=== PATIENT | female | born 1930 | race Caucasian/White ===

== ENCOUNTER 2017-06-29 07:05 | Inpatient (IN) | payer MEDICAID, OTHER ==
[2017-06-29 07:10] VITALS: BMI 29.2
[2017-06-29 08:24] LABS: BASO # 0.1 K/uL (0.0-0.2); BASO % 0.6 % (0.0-2.0); EOS # 0.3 K/uL (0.0-0.7); EOS % 2.9 % (0.0-4.0); LYMPH # 2.9 K/uL (1.0-4.3); LYMPH % 31.2 % (20.0-40.0); MEAN CELL VOLUME 88.5 fL (81.0-99.0); MEAN CORPUSCULAR HEMOGLOBIN 29.5 pg (27.0-31.0); MEAN CORPUSCULAR HGB CONC 33.3 g/dL (33.0-37.0); MEAN PLATELET VOLUME 8.5 fL (7.2-11.7); MONO # 0.7 K/uL (0.0-0.8); MONO % 7.3 % (0.0-10.0); NRBC % 0.1 % (0.0-2.0); RED CELL DISTRIBUTION WIDTH 15.8 % (11.5-14.5); WHITE BLOOD COUNT 9.3 K/uL (4.8-10.8)
[2017-06-29 08:40] LABS: RBC URINE 1 /hpf (0-3); URINE BACTERIA RARE (<OCC); URINE BILIRUBIN NEGATIVE (NEGATIVE); URINE BLOOD NEGATIVE (NEGATIVE); URINE COLOR Yellow (YELLOW); URINE GLUCOSE (UA) NORMAL (Normal); URINE HYALINE CAST 0-2 /lpf (0-2); URINE KETONE NEGATIVE (NEGATIVE); URINE LEUKOCYTE ESTERASE 1+ Leu/uL (Negative); URINE PROTEIN NEGATIVE (NEGATIVE); URINE UROBILINOGEN NORMAL mg/dL (0.2-1.0); WBC URINE 8 /hpf (0-5)
--- NOTE | 2017-06-29 08:54 | C.PDOC ---
History Of Present Illness 86 y/o female sent to ED by PMD, Dr. Burroughs, for abnormal lab results. Pt states her TSH was found to be 165 in outpatient labs 2 days ago. Denies taking any thyroid medications. Denies any physical complaints at this time. Time Seen by Provider: 06/29/17 07:41 Chief Complaint (Nursing): Abnormal Labs History Per: Patient History/Exam Limitations: no limitations Severity: None Pain Scale Rating Of: 0 Reports Recently: Treated By A Physician Recent travel outside of the [place]: No Additional History Per: Patient Past Medical History Reviewed: Historical Data, Nursing Documentation, Vital Signs Vital Signs: Last Vital Signs Temp 97.4 F L 06/29/17 07:14 Pulse 61 06/29/17 08:56 Resp 14 06/29/17 08:56 BP 134/64 06/29/17 08:56 Pulse Ox 99 06/29/17 08:59 - Medical History PMH: HTN, Hypercholesterolemia - [facility] Procedures CORONAR ARTERIOGR-2 CATH (03/24/13) LEFT HEART CARDIAC CATH (03/24/13) LT HEART ANGIOCARDIOGRAM (03/24/13) Family History: States: Unknown Family Hx - Social History Hx Tobacco Use: No Hx Alcohol Use: No Hx Substance Use: No - Immunization History Hx Tetanus Toxoid Vaccination: No Hx Influenza Vaccination: No Hx Pneumococcal Vaccination: No Review Of Systems Except As Marked, All Systems Reviewed And Found Negative. Constitutional: Negative for: Fever, Chills Cardiovascular: Negative for: Chest Pain, Palpitations Respiratory: Negative for: Shortness of Breath Physical Exam - Physical Exam Appears: Non-toxic, No Acute Distress Skin: Normal Color, Warm, Dry Head: Atraumatic, Normacephalic Eye(s): bilateral: Normal Inspection Oral Mucosa: Moist Neck: Normal ROM, Supple Cardiovascular: Rhythm Regular, No Murmur Respiratory: Normal Breath Sounds, No Rales, No Rhonchi, No Wheezing Gastrointestinal/Abdominal: Soft, No Tenderness Extremity: Normal ROM Neurological/Psych: Oriented x3, Normal Speech ED Course And Treatment - Laboratory Results Result Diagrams: 06/29/17 08:11 06/29/17 08:11 Lab Interpretation: Abnormal (mild elev glu, T4 low, pending TSH) ECG: Interpreted By Me ECG Rhythm: Sinus Rhythm ECG Interpretation: Normal Rate From EC O2 Sat by Pulse Oximetry: 99 Pulse Ox Interpretation: Normal - Radiology CXR: Interpreted by Me CXR Interpretation: Yes: No Acute Disease Progress Note: synthroid 50 mcg PO given Reevaluation Time: 09:42 Reassessment Condition: Improved - Physician Consult Information Outcome Of Conversation: 929: d/w Dr. Parr- PMD- ok to start synthroid and Obs Medical Decision Making Medical Decision Making: EKG, CXR, blood work, UA ordered and reviewed. 929: hypothyroidism of ? etiology, asymptomatic and other faye normal w/u. Disposition Doctor Will See Patient In The: Hospital Counseled Patient/Family Regarding: Studies Performed, Diagnosis - Disposition Disposition: HOSPITALIZED Disposition Time: 09:43 Condition: GOOD Forms: [facility] ([place]) - Clinical Impression Clinical Impression: Hypothyroidism - Scribe Statement The provider has reviewed the documentation as recorded by the Oviibscotty Mahajan All medical record entries made by the Oviibe were at my direction and personally dictated by me. I have reviewed the chart and agree that the record accurately reflects my personal performance of the history, physical exam, medical decision making, and the department course for this patient. I have also personally directed, reviewed, and agree with the discharge instructions and disposition.
[2017-06-29 09:03] LABS: BILIRUBIN,TOTAL 0.8 mg/dL (0.2-1.3); CALCIUM 9.2 mg/dl (8.6-10.4); GFR AFRICAN-AMERICAN 37; GLUCOSE,RANDOM 191 mg/dL (65-105); TOTAL PROTEIN 9.6 g/dL (6.3-8.3)
[2017-06-29 09:18] LABS: ALB/GLOB RATIO 0.7 (1.0-2.1); ALKALINE PHOSPHATASE 67 U/L (38-126); ALT/SGPT 16 U/L (9-52); AST/SGOT 21 U/L (14-36); BLOOD UREA NITROGEN 30 mg/dL (7-17); CARBON DIOXIDE 25 mmol/L (22-30); CHLORIDE 105 mmol/L (98-107); POTASSIUM 5.6 mmol/L (3.6-5.2); SODIUM 138 mmol/L (132-148)
[2017-06-29 09:20] LABS: FREE T4 0.09 ng/dL (0.78-2.19)
[2017-06-29] MEDS ORDERED: Levothyroxine 50 MCG TAB PO STA (09:39)
[2017-06-29] MEDS ORDERED: Influenza Vaccine 60 mcg/0.5 mL SYR (4YR UP) IM ONE (10:00)
--- NOTE | 2017-06-29 10:18 | RAD ---
PROCEDURE: CHEST RADIOGRAPH, 1 VIEW HISTORY: Shortness of breath COMPARISON: None available. FINDINGS: LUNGS: There are low lung volumes. No focal consolidation. There is mild pulmonary venous congestion. PLEURA: No pneumothorax or pleural fluid seen. CARDIOVASCULAR: Mild cardiomegaly. OSSEOUS STRUCTURES: No significant abnormalities. VISUALIZED UPPER ABDOMEN: Normal. OTHER FINDINGS: None. IMPRESSION: Mild cardiomegaly and pulmonary venous congestion. Low lung volumes may be related to poor inspiratory effort. No active pulmonary disease.
[2017-06-29] MEDS ORDERED: Levothyroxine 25 MCG TAB PO STA (11:31)
[2017-06-29 17:14] VITALS: RESP 20
--- NOTE | 2017-06-29 17:55 | CARD ---
APPROVED REPORT EXAM: Two-dimensional and M-mode echocardiogram with Doppler and color Doppler. Other Information Quality : [employer] : INDICATION Pericardial Effusion 2D DIMENSIONS IVSd1.1 (0.7-1.1cm)LVDd4.7 (3.9-5.9cm) PWd1.0 (0.7-1.1cm)LVDs2.7 (2.5-4.0cm) FS (%) 42.6 %LVEF (%)73.7 (>50%) M-Mode DIMENSIONS Left Atrium (MM)4.02 (2.5-4.0cm)Aortic Root3.60 (2.2-3.7cm) Aortic Cusp Exc.1.83 (1.5-2.0cm) Mitral Valve MV E Qllifyow61.8cm/sMV A Bkpfjqtk89.8cm/sE/A ratio0.9 TDI E/Lateral E'0.0E/Medial E'0.0 Tricuspid Valve TR Peak Oltuswol235rx/sTR Peak Gr.[id number] LEFT VENTRICLE The left ventricle is normal size. There is borderline concentric left ventricular hypertrophy. The left ventricular systolic function is normal. The left ventricular ejection fraction is within the normal range. There is normal LV segmental wall motion. Elevated left atrial pressure by Tissue Doppler. Transmitral Doppler flow pattern is Grade I-abnormal relaxation pattern. RIGHT VENTRICLE The right ventricle is normal size. The right ventricular systolic function is normal. ATRIA The left atrium is borderline to mildly dilated. The right atrium size is normal. AORTIC VALVE The aortic valve is normal in structure. No aortic regurgitation is present. MITRAL VALVE The mitral valve is normal in structure. There is no mitral valve regurgitation noted. TRICUSPID VALVE The tricuspid valve is normal in structure. There is trace tricuspid regurgitation. PULMONIC VALVE The pulmonary valve is normal in structure. GREAT VESSELS The aortic root is normal in size. The IVC is normal in size and collapses >50% with inspiration. PERICARDIAL EFFUSION There is no pericardial effusion. <Conclusion> There is borderline concentric left ventricular hypertrophy.The left ventricular systolic function is normal. Transmitral Doppler flow pattern is Grade I-abnormal relaxation pattern. Elevated left atrial pressure by Tissue Doppler. The left atrium is borderline to mildly dilated. The right ventricular systolic function is normal. No gross valvular abnormality. There is no pericardial effusion. Pericardial fat pad noted.
--- NOTE | 2017-06-29 19:52 | CP.PCM.HP ---
History of Present Illness - History of Present Illness History of Present Illness: chief complaint: Abnormal TSH. History presentOf present illness: 86-year-old female, with history of diabetes, hypertension, congestive heart failure, chronic renal failure, history of intermittent atrial fib, in the past , nonobstructive coronary disease, Came to the office with a increasing swelling on the neck, facial swelling, and not feeling well. At that time. Basic blood test was done, and there was increasing elevated TSH level. TSH level was around 200. I immediately advised the patient to go to the emergency room. Because of the complications related to heart condition, hypothyroidism is so severe, you and the clinically patient is okay I advised the patient to go to the emergency room for further management. The patient is currently feeling okay, no chest pain, neck swelling noted and facial swelling present. Patient is eating okay. Patient is making urine. No leg swelling noted. Present on Admission - Present on Admission Any Indicators Present on Admission: No History of DVT/PE: No History of Uncontrolled Diabetes: No Urinary Catheter: No Decubitus Ulcer Present: No Review of Systems - Review of Systems Systems not reviewed;Unavailable: Acuity of Condition All systems: reviewed and no additional remarkable complaints except Past Patient History - Infectious Disease Hx of Infectious Diseases: None - Past Medical History & Family History Past Medical History?: Yes Past Family History: Reviewed and not pertinent - Past Social History Smoking Status: Never Smoked Chewing Tobacco Use: No Cigar Use: No Alcohol: None Drugs: Denies Home Situation {Lives}: With Family - CARDIAC Hx Cardiac Disorders: Yes (history of atrial fibrillation, heart failure, non- ST elevation VT) Hx Heart Attack: Yes (February 2017) Hx Hypercholesterolemia: Yes Hx Hypertension: Yes - NEUROLOGICAL Hx Dementia: Yes (mild dementia) - HEENT Hx Deafness: Yes - RENAL Hx Chronic Kidney Disease: Yes (chronic renal failure) - ENDOCRINE/METABOLIC Hx Diabetes Mellitus Type 2: Yes (controlled with the metformin) - MUSCULOSKELETAL/RHEUMATOLOGICAL Hx Arthritis: Yes Hx Falls: No - PSYCHIATRIC Hx Substance Use: No - SURGICAL HISTORY Hx Surgeries: Yes Other/Comment: right hand sx - ANESTHESIA Hx Anesthesia: Yes Hx Anesthesia Reactions: No Meds Allergies/Adverse Reactions: Allergies Allergy/AdvReac Type Severity Reaction Status Date / Time No Known Allergies Allergy Verified 06/29/17 07:17 Physical Exam - Constitutional Additional comments: facial swelling noted, minimal leg swelling noted. On examination: HEENT PERRLA, neck supple No thyromegaly was noted and no cervical adenopathy noted Chest bilateral good air entry, no wheezing or rales noted CVS regular heart sound, no murmur Abdomen soft and no organomegaly Extremities no pedal edema, no leg swelling, pedal pulses are good. [employer] alert awake oriented x3 no functional neurological deficit Results - Vital Signs Recent Vital Signs: Last Vital Signs Temp 97.2 F L 06/29/17 16:00 Pulse 65 06/29/17 16:00 Resp 20 06/29/17 16:00 BP 126/74 06/29/17 16:00 Pulse Ox 98 06/29/17 16:00 - Labs Result Diagrams: 06/29/17 08:11 06/29/17 08:11 Labs: Laboratory Results - last 24 hr 06/29/17 06/29/17 06/29/17 08:11 08:11 08:11 WBC 9.3 D RBC 3.73 L Hgb 11.0 Hct 33.0 L MCV 88.5 MCH 29.5 MCHC 33.3 RDW 15.8 H Plt Count 252 MPV 8.5 Neut % (Auto) 58.0 Lymph % (Auto) 31.2 [place] % (Auto) 7.3 Eos % (Auto) 2.9 Baso % (Auto) 0.6 Neut # 5.4 Lymph # 2.9 [place] # 0.7 Eos # 0.3 Baso # 0.1 Sodium 138 Potassium 5.6 H Chloride 105 Carbon Dioxide 25 Anion Gap 14 BUN 30 H Creatinine 1.6 H Est GFR ( Amer) 37 Est GFR (Non-Af Amer) 31 POC Glucose (mg/dL) Random Glucose 191 H Calcium 9.2 Total Bilirubin 0.8 AST 21 ALT 16 Alkaline Phosphatase 67 Troponin I < 0.0120 Total Protein 9.6 H Albumin 4.1 Globulin 5.5 H Albumin/Globulin Ratio 0.7 L Free T4 TSH 3rd Generation Urine Color Yellow Urine Clarity Hazy Urine pH 7.0 Ur Specific [employer] 1.012 Urine Protein Negative Urine Glucose (UA) Normal Urine Ketones Negative Urine Blood Negative Urine Nitrate Negative Urine Bilirubin Negative Urine Urobilinogen Normal Ur Leukocyte Esterase 1+ H Urine WBC (Auto) 8 H Urine RBC (Auto) 1 Ur Squamous Epith Cells 2 Urine Bacteria Rare Hyaline Casts 0-2 06/29/17 06/29/17 08:11 16:31 WBC RBC Hgb Hct MCV MCH MCHC RDW Plt Count MPV Neut % (Auto) Lymph % (Auto) [place] % (Auto) Eos % (Auto) Baso % (Auto) Neut # Lymph # [place] # Eos # Baso # Sodium Potassium Chloride Carbon Dioxide Anion Gap BUN Creatinine Est GFR ( Amer) Est GFR (Non-Af Amer) POC Glucose (mg/dL) 137 H Random Glucose Calcium Total Bilirubin AST ALT Alkaline Phosphatase Troponin I Total Protein Albumin Globulin Albumin/Globulin Ratio Free T4 0.09 L TSH 3rd Generation 210.00 H Urine Color Urine Clarity Urine pH Ur Specific [employer] Urine Protein Urine Glucose (UA) Urine Ketones Urine Blood Urine Nitrate Urine Bilirubin Urine Urobilinogen Ur Leukocyte Esterase Urine WBC (Auto) Urine RBC (Auto) Ur Squamous Epith Cells Urine Bacteria Hyaline Casts - EKG Data EKG comments: sinus bradycardia, first degree AV block Assessment & Plan (1) CHF (congestive heart failure) Status: Acute (2) Atrial fibrillation Status: Acute (3) CAD (coronary artery disease) Status: Acute (4) Hypothyroidism Assessment and Plan: patient with the severe cardiac condition, now admitted with a 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 Severe hypothyroidism. In the current evaluation. To start the patient levothyroxine slowly, as the patient tolerates. Mild renal insufficiency. Patient will need close monitoring. Will follow the patient. Educated with the family about the condition. Status: Acute
[2017-06-30] MEDS ORDERED: Levothyroxine 100 MCG TAB PO SCH (06:30)
[2017-06-30 08:08] LABS: ALB/GLOB RATIO 1.1 (1.0-2.1); ALKALINE PHOSPHATASE 70 U/L (38-126); ALT/SGPT 23 U/L (9-52); AST/SGOT 14 U/L (14-36); BILIRUBIN,TOTAL 0.5 mg/dL (0.2-1.3); BLOOD UREA NITROGEN 27 mg/dL (7-17); CALCIUM 9.1 mg/dl (8.6-10.4); CARBON DIOXIDE 26 mmol/L (22-30); CHLORIDE 106 mmol/L (98-107); GFR AFRICAN-AMERICAN 37; GLUCOSE,RANDOM 135 mg/dL (65-105); POTASSIUM 5.3 mmol/L (3.6-5.2); SODIUM 141 mmol/L (132-148); TOTAL PROTEIN 7.2 g/dL (6.3-8.3)
[2017-06-30 08:37] LABS: T4 2.14 ug/dL (5.5-11.0)
--- NOTE | 2017-06-30 09:43 | CON ---
DATE: ENDOCRINOLOGY CONSULT ROOM: 370. HISTORY OF PRESENT ILLNESS: This is an 86-year-old female with known history of type 2 diabetes and hypertension, presenting to the primary doctor's office with generalized swelling, most prominent in her facial and neck area and associated generalized body weakness with progressively worsening dizziness and lightheadedness and was found to have a TSH level of 165 done with outpatient lab testing. She was thus referred for immediate admission because of bradycardia and progressively worsening dizziness and lightheadedness and has been referred now for endocrine evaluation and management. PAST MEDICAL HISTORY: History of type 2 diabetes, currently on metformin, given as 500 mg b.i.d.; history of hypertension and dyslipidemia; history of previous admissions for congestive heart failure and intermittent atrial fibrillation, but has been hemodynamically stable through the present time; history of coronary artery disease with no significant occlusive disease at this time; history of chronic kidney disease with underlying renal insufficiency. FAMILY HISTORY: Positive for diabetes and hypertension. SOCIAL HISTORY: The patient has a supportive family. No known substance use. REVIEW OF SYSTEMS: As mentioned above. Admits to generalized body weakness with progressive bouts of dizziness and lightheadedness, and near syncopal episode as noted. Also admits to bifrontal headache with increasing bouts of hypersomnolence, lethargy and generalized malaise at this time. Admits to the precordial chest pain with progressive shortness of breath, especially on exertion. Her oral intake has been quite variable and suboptimal with nausea, dyspepsia and severe habitual constipation. No recent alterations of urinary patterns otherwise. Admits to generalized body swelling in both upper and lower extremities, but worse and more prominent in her facial and neck area. PHYSICAL EXAMINATION: GENERAL: Average built female in no apparent distress with marked periorbital and facial edema. VITAL SIGNS: Blood pressure of 140/80, pulse of 60 beats per minute and regular, temperature 98.7, respirations 20, height is 4 feet 11 inches, weight is 104 pounds. HEENT: Head is normocephalic. Eyes anicteric with pink conjunctivae. Funduscopy not possible at this time. Ears, nose and throat otherwise normal. NECK: Supple. Thyroid gland is firm and nontender with mild thyromegaly, but no overt possible thyroid nodules or cervical adenopathy. HEART: Adynamic precordium. S1 and S2 is low and regular. LUNGS: Clear to auscultation. ABDOMEN: Flat and soft with positive bowel sounds. EXTREMITIES: With +1 bipedal edema, pulses are +2 bilaterally. LABORATORY DATA: Chemistries showed BUN of 30, sodium 138, potassium 5.6, chloride 105, CO2 of 25, glucose 191, creatinine 1.6. Free T4 is 0.09 with the TSH of 210.00, albumin is 4.1. 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 PLAN OF MANAGEMENT: We will start the patient right away on levothyroxine replacement therapy, give her parenterally up to 100 mcg intravenous push daily for the next three days. Giving her oral levothyroxine will be inadequate management because of the marked mucosal edema in the stomach area, which shows an impaired absorption on the levothyroxine preparation. It would be beneficial to give the levothyroxine by intravenous push for the next few days to enhance full absorption of the levothyroxine medication as mentioned. We will obtain a thyroid peroxidase and a thyroglobulin antibody, which will confirm and/or negate the presence of underlying thyroid autoimmunity. We will obtain serial chemistries and supplement accordingly as needed. We will also repeat the comprehensive thyroid hormonal profile tomorrow as ordered. We will follow. Itzel De Leon MD
[2017-06-30] MEDS ORDERED: Levothyroxine 200 mcg (0.2 mg) Inj IVP SCH (10:00)
[2017-06-30] MEDS: Levothyroxine 100 mcg (0.1 mg) Inj IVP SCH (11:12)
--- NOTE | 2017-06-30 13:44 | PN ---
DATE: ENDOCRINOLOGY FOLLOWUP NOTE LOCATION: Room 370. SUBJECTIVE: This is an 86-year-old female admitted with marked facial and periorbital and subcutaneous swelling and edema related to marked hypothyroidism both historically, clinically and biochemically as noted. The family has told the nursing staff that she was actually taking some kind of thyroid medication, but it was not mentioned on admission by the primary physician, nor the ER physician that she was on some kind of oral thyroid medication at this time. She has clinical evidence of new myxedema at this time and the latest repeat thyroid studies done today showed a T4 of 2.14 with a TSH of 171.00, which is extremely elevated at this time. The cortisol level is 8.0. The chemistry showed a BUN of 27, sodium 141, potassium 5.3, chloride 106, CO2 of 26, glucose 135 and creatinine 1.6. PLAN: So at this time, because of the extreme generalized edema and also expected marked mucosal edema in the gastric mucosa of the stomach, impeding and impairing absorption of any oral levothyroxine medications, it has been decided that we should continue the parenteral levothyroxine given as 100 mcg IV push once daily as ordered for at least 3 days, has to be given. Then we can switch over to oral hypoglycemic therapy as indicated. We will obtain serial chemistries and serial thyroid studies accordingly. The thyroid antibodies have been sent out, which will confirm and/or negate the presence of underlying thyroid autoimmunity. We will follow. Itzel De Leon MD
--- NOTE | 2017-06-30 17:41 | CP.PCM.PN ---
Subjective - Date & Time of Evaluation Date of Evaluation: 06/30/17 Time of Evaluation: 17:40 - Subjective Subjective: pt is feeling ok no chest pain no palpitation family at bed side spoke to family having BM Objective - Vital Signs/Intake and Output Vital Signs (last 24 hours): Temp Pulse Resp BP Pulse Ox 97.8 F 61 20 110/66 99 06/30/17 16:16 06/30/17 16:16 06/30/17 16:16 06/30/17 16:16 06/30/17 16:16 clinically stable Intake and Output: 06/30/17 06/30/17 06:59 18:59 Intake Total 320 Balance 320 - Medications Medications: Current Medications Aspirin (Ecotrin) 81 mg PO DAILY [facility] Last Admin: 06/30/17 10:39 Dose: 81 mg Atenolol (Tenormin) 50 mg PO DAILY [facility] Last Admin: 06/30/17 10:39 Dose: 50 mg Glipizide (Glucotrol) 5 mg PO ACBD [facility] Last Admin: 06/30/17 16:59 Dose: 5 mg Heparin Sodium (Porcine) (Heparin) 5,000 units SC Q8 [facility] Last Admin: 06/30/17 14:06 Dose: 5,000 units Levothyroxine Sodium (Synthroid) 100 mcg IVP DAILY [facility] Stop: 07/03/17 10:01 Last Admin: 06/30/17 11:12 Dose: 100 mcg Pneumococcal Polyvalent Vaccine (Pneumovax 23 Vaccine) 0.5 ml IM .ONCE ONE Stop: 07/01/17 10:01 Rosuvastatin Calcium (Crestor) 5 mg PO HS [facility] Last Admin: 06/29/17 21:20 Dose: 5 mg - Labs Labs: 06/29/17 08:11 06/30/17 07:35 Assessment and Plan (1) CHF (congestive heart failure) Status: Acute (2) Atrial fibrillation Status: Acute (3) CAD (coronary artery disease) Status: Acute (4) Hypothyroidism Assessment & Plan: severe hypothyroidsm myxedema symptoms on IV thyroid treatment will monitor one more day Status: Acute
[2017-07-01 08:38] LABS: ALB/GLOB RATIO 1.1 (1.0-2.1); BILIRUBIN,TOTAL 0.5 mg/dL (0.2-1.3); CALCIUM 8.7 mg/dl (8.6-10.4); POTASSIUM 5.1 mmol/L (3.6-5.2); TOTAL PROTEIN 7.5 g/dL (6.3-8.3)
[2017-07-01 08:39] LABS: BASO % 0.6 % (0.0-2.0); EOS # 0.2 K/uL (0.0-0.7); EOS % 3.2 % (0.0-4.0); HEMATOCRIT 28.9 % (34.0-47.0); LYMPH # 2.7 K/uL (1.0-4.3); LYMPH % 36.6 % (20.0-40.0); MEAN CELL VOLUME 87.3 fL (81.0-99.0); MEAN CORPUSCULAR HGB CONC 33.2 g/dL (33.0-37.0); MEAN PLATELET VOLUME 8.1 fL (7.2-11.7); MONO # 0.6 K/uL (0.0-0.8); RED CELL DISTRIBUTION WIDTH 15.8 % (11.5-14.5); WHITE BLOOD COUNT 7.2 K/uL (4.8-10.8)
[2017-07-01 08:50] LABS: T4 3.29 ug/dL (5.5-11.0)
[2017-07-01] MEDS ORDERED: Pneumococcal 23-Valent Vaccine IM ONE (10:00)
[2017-07-01] MEDS ORDERED: Influenza Vaccine 60 mcg/0.5 mL SYR (4YR UP) IM ONE (10:00)
[2017-07-01] MEDS: Levothyroxine 100 mcg (0.1 mg) Inj IVP SCH (10:53)
[2017-07-01] MEDS: Lidocaine 5% Patch TD SCH (17:14)
--- NOTE | 2017-07-02 07:24 | PN ---
DATE: ENDOCRINOLOGY FOLLOWUP NOTE LOCATION: Room 370. SUBJECTIVE: This is an 86-year-old female with marked constitutional symptoms of generalized body weakness and progressive shortness of breath with supervening facial and periorbital edema and underlying generalized body edema and was evaluated to have near mixed edema related to marked hypothyroidism both historically, clinically and by chemically as noted thereof. The family has alleged that the patient was on some kind of thyroid medication, but the list of her medications from home did not show any kind of thyroid medications, nor was the information given to the primary physician or the ER doctor at the time of admission. She has been started on IV or parenteral levothyroxine at this time as given. The latest thyroid studies showed a total T4 today of 3.29, which is improving compared to the initial level of 2.14, the latest TSH is still pending today and has yet to be completed, but yesterday's TSH was 171, which is much lower than the initial TSH on admission of 210.00. It will take 4 to 6 weeks for the normalization of the TSH values. I would expect a more rapid improvement with a total T4 and free T4 levels accordingly. Her latest chemistries showed a BUN of 27, sodium 141, potassium 5.3, chloride 106, CO2 of 26, glucose 135 and creatinine 1.6. With the underlying chronic kidney disease and renal insufficiency, I would hold off any metformin syrup at this time. We will continue the glipizide given as 5 mg b.i.d. before meals as ordered. We will also continue the levothyroxine given as a 100 mcg IV push daily as ordered. If the repeat levels done today and/or tomorrow are remarkably improved, then we can switch her over to oral levothyroxine medications as indicated. The main reason why we are giving parenteral or IV levothyroxine is because of the expected marked gastric mucosal edema hindering full obstruction of the oral levothyroxine if given at this time. To expect remarkable recovery both clinically and historically and even by chemically, it would be preferable to give levothyroxine by IV push once daily as ordered. After by chemical indices improved overnight and by tomorrow, then we can switch her over to oral levothyroxine medications as indicated. We will follow and advise accordingly. Itzel De Leon MD
[2017-07-02 08:15] LABS: BASO # 0.1 K/uL (0.0-0.2); BASO % 0.8 % (0.0-2.0); EOS # 0.2 K/uL (0.0-0.7); HEMATOCRIT 28.3 % (34.0-47.0); LYMPH # 2.1 K/uL (1.0-4.3); MEAN CELL VOLUME 87.4 fL (81.0-99.0); MEAN CORPUSCULAR HEMOGLOBIN 29.1 pg (27.0-31.0); MEAN CORPUSCULAR HGB CONC 33.3 g/dL (33.0-37.0); MEAN PLATELET VOLUME 8.5 fL (7.2-11.7); MONO # 0.5 K/uL (0.0-0.8); MONO % 8.3 % (0.0-10.0); RED CELL DISTRIBUTION WIDTH 16.1 % (11.5-14.5); WHITE BLOOD COUNT 6.2 K/uL (4.8-10.8)
[2017-07-02 08:46] LABS: ALB/GLOB RATIO 1.1 (1.0-2.1); BILIRUBIN,TOTAL 0.4 mg/dL (0.2-1.3); CALCIUM 8.8 mg/dl (8.6-10.4); POTASSIUM 4.9 mmol/L (3.6-5.2); TOTAL PROTEIN 7.3 g/dL (6.3-8.3)
[2017-07-02 09:06] LABS: T4 3.95 ug/dL (5.5-11.0)
[2017-07-02] MEDS: Lidocaine 5% Patch TD SCH (09:36)
[2017-07-02] MEDS: Levothyroxine 100 mcg (0.1 mg) Inj IVP SCH (09:37)
--- NOTE | 2017-07-02 19:01 | PN ---
ENDOCRINOLOGY FOLLOWUP NOTE LOCATION: Room 370. SUBJECTIVE: This is an 86-year-old female with overt hypothyroidism, both historically clinically and biochemically, and is now being followed closely for metabolic management. She has improved clinically and physically as noted by the family members and biochemically also has improved remarkably as noted with today's lab testing. The repeat TSH is 141.00 with a total T4 of 3.95. As mentioned in the previous note, the TSH is the last number to normalize and it takes 4 to 6 weeks for normalization of the TSH level, but her total T4 has improved remarkably since admission. We will give her one more IV parenteral levothyroxine tomorrow morning and then would recommend an oral dosing of 125 p.o. once daily as ordered. She will follow with Dr. Burroughs, her primary physician, for outpatient diabetic and thyroid management. Itzel De Leon MD
--- NOTE | 2017-07-03 00:49 | CARD ---
APPROVED REPORT EKG Measurement Heart [id number] CT 224P [id number] <Conclusion> Suspect arm lead reversal, interpretation assumes no reversal Sinus bradycardia with 1st degree AV block Lateral infarct, age undetermined Abnormal ECG
--- NOTE | 2017-07-03 00:50 | CARD ---
APPROVED REPORT EKG Measurement Heart [id number] [place] P55 [id number] <Conclusion> Sinus rhythm at the rate of 58 Baseline artifact, please repeat Abnormal ECG
[2017-07-03] MEDS ORDERED: Levothyroxine 100 mcg (0.1 mg) Inj IVP SCH (06:30)
[2017-07-03] MEDS ORDERED: LEVOTHYROXINE IVP SCH (06:30)
[2017-07-03] MEDS ORDERED: SODIUM CHLORIDE 0.9% IVP SCH (06:30)
[2017-07-03] MEDS ORDERED: Levothyroxine 125 MCG TAB PO SCH (07:30)
[2017-07-03 07:48] LABS: BILIRUBIN,TOTAL 0.4 mg/dL (0.2-1.3); CALCIUM 8.7 mg/dl (8.6-10.4); POTASSIUM 4.9 mmol/L (3.6-5.2); TOTAL PROTEIN 8.6 g/dL (6.3-8.3)
[2017-07-03 08:03] LABS: T4 7.82 ug/dL (5.5-11.0)
[2017-07-03 08:06] VITALS: BP 115/68; PULSE 94; O2SAT 97
[2017-07-03 08:15] LABS: ALB/GLOB RATIO 0.8 (1.0-2.1)
[2017-07-03] MEDS: Lidocaine 5% Patch TD SCH (10:04)
--- NOTE | 2017-07-03 16:18 | CP.PCM.PN ---
Subjective - Date & Time of Evaluation Date of Evaluation: 07/03/17 Time of Evaluation: 16:18 - Subjective Subjective: PT SEEN WITH FAMILY AT BEDSIDE. WAITING TO GO HOME. PT IS VERY EAGER TO BE D/ C HOME TONIGHT. DR. SILVEIRA'S NOTE FROM YESTERDAY REVIEWED AND RECS APPRECIATED. SEVERAL CALLS MADE TO DR. MUNSON'S OFFICE FOR D/C ORDER BUT PLACED ON HOLD FOR OVER 10 MINUTES. MESSAGE LEFT FOR DR. MUNSON ON PHONE THAT I WILL BE D/ C THE PT TODAY FOR HIM AND SHE WILL SEE HIM IN THE OFFICE NEXT WEEK. RX FOR LEVOTHYROXINE SENT TO PT'S PHARMACY AND THEY HAVE BEEN INSTRUCTED TO [facility] NEEDS SALESPERSON MED TONIGHT. PT EDUCATED ON HOW TO TAKE THE NEW MEDS. PT TO CALL DR. SILVEIRA;'S OFFICE TOMORROW TO MAKE A F/U APPT FOR NEXT WEEK. PT AND FAMILY VERBALIZE UNDERSTANDING OF D/C PLAN AND MEDS AND F/U. NO FURTHER ORDERS. Objective - Vital Signs/Intake and Output Vital Signs (last 24 hours): Temp Pulse Resp BP Pulse Ox 97.3 F L 94 H 20 115/68 97 07/03/17 08:03 07/03/17 08:03 07/03/17 08:03 07/03/17 08:03 07/03/17 08:03 Intake and Output: 07/03/17 07/03/17 06:59 18:59 Intake Total 420 350 Output Total 300 Balance 120 350 - Medications Medications: Current Medications Aspirin (Ecotrin) 81 mg PO DAILY [facility] Last Admin: 07/03/17 10:05 Dose: 81 mg Atenolol (Tenormin) 50 mg PO DAILY [facility] Last Admin: 07/03/17 10:05 Dose: 50 mg Glipizide (Glucotrol) 5 mg PO ACBD [facility] Last Admin: 07/03/17 08:04 Dose: 5 mg Heparin Sodium (Porcine) (Heparin) 5,000 units SC Q8 [facility] Last Admin: 07/03/17 13:52 Dose: 5,000 units Levothyroxine Sodium 100 mcg/ (Sodium Chloride) 10 mls @ 0 mls/hr IVP Q24H [facility] PRN Reason: UD Last Admin: 07/03/17 05:40 Dose: 100 mls/hr Levothyroxine Sodium (Synthroid) 125 mcg PO ACB [facility] Last Admin: 07/03/17 06:30 Dose: 125 mcg Lidocaine (Lidoderm) 1 ea TD DAILY [facility] Last Admin: 07/03/17 10:04 Dose: 1 ea Rosuvastatin Calcium (Crestor) 5 mg PO HS [facility] Last Admin: 07/02/17 22:40 Dose: 5 mg - Labs Labs: 07/02/17 08:05 07/03/17 07:23
--- NOTE | 2017-07-03 16:25 | PN ---
DATE: ENDOCRINOLOGY FOLLOWUP NOTE LOCATION: Room 370. SUBJECTIVE: This is an 86-year-old female with recent evaluation for marked hypothyroidism both historically, clinically and by chemically and since then improved both clinically and metabolically as noted thereof. She received IV levothyroxine up until today for which the last dose of 100 mcg IV push was given early this morning. Her repeat thyroid studies showed a level of 126.00 for the TSH and `.82 for the total T4, which is finally normalized at this time. It will take 4 to 6 weeks for the normalization of the TSH level as expected. We will continue the oral levothyroxine given as 125 mcg p.o. for restless disorder. We will titrate incrementally as indicated to optimize metabolic control. We will follow up with you. Itzel De Leon MD
[2017-07-03 17:13] VITALS: TEMP 97.9
[2017-07-03] MEDS ORDERED: Influenza Vaccine 60 mcg/0.5 mL SYR (4YR UP) IM ONE ×2 (17:20→17:45)
[2017-07-03] MEDS ORDERED: Pneumococcal 23-Valent Vaccine IM ONE ×2 (17:35→17:45)
--- NOTE | 2017-07-03 17:35 | CP.PCM.PN ---
Subjective - Date & Time of Evaluation Date of Evaluation: 07/01/17 Time of Evaluation: 17:35 - Subjective Subjective: Patient is currently feeling better, no chest pain or shortness of breath. Denies any other major active symptoms. She's feeling good appetite, and able to walk Objective - Vital Signs/Intake and Output Vital Signs (last 24 hours): Temp Pulse Resp BP Pulse Ox 97.9 F 94 H 20 115/68 97 07/03/17 16:00 07/03/17 16:26 07/03/17 16:00 07/03/17 16:26 07/03/17 16:26 Intake and Output: 07/03/17 07/03/17 06:59 18:59 Intake Total 420 350 Output Total 300 Balance 120 350 On examination: HEENT PERRLA, neck supple No thyromegaly was noted and no cervical adenopathy noted Chest bilateral good air entry, no wheezing or rales noted CVS regular heart sound, no murmur Abdomen soft and no organomegaly Extremities no pedal edema, no leg swelling, pedal pulses are good. 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 no functional neurological deficit - Medications Medications: Current Medications Aspirin (Ecotrin) 81 mg PO DAILY [facility] Last Admin: 07/03/17 10:05 Dose: 81 mg Atenolol (Tenormin) 50 mg PO DAILY [facility] Last Admin: 07/03/17 10:05 Dose: 50 mg Glipizide (Glucotrol) 5 mg PO ACBD [facility] Last Admin: 07/03/17 08:04 Dose: 5 mg Heparin Sodium (Porcine) (Heparin) 5,000 units SC Q8 [facility] Last Admin: 07/03/17 13:52 Dose: 5,000 units Levothyroxine Sodium 100 mcg/ (Sodium Chloride) 10 mls @ 0 mls/hr IVP Q24H [facility] PRN Reason: UD Last Admin: 07/03/17 05:40 Dose: 100 mls/hr Levothyroxine Sodium (Synthroid) 125 mcg PO ACB [facility] Last Admin: 07/03/17 06:30 Dose: 125 mcg Lidocaine (Lidoderm) 1 ea TD DAILY [facility] Last Admin: 07/03/17 10:04 Dose: 1 ea Rosuvastatin Calcium (Crestor) 5 mg PO HS [facility] Last Admin: 07/02/17 22:40 Dose: 5 mg - Labs Labs: 07/02/17 08:05 07/03/17 07:23 Assessment and Plan (1) CHF (congestive heart failure) Status: Acute (2) Atrial fibrillation Status: Acute (3) CAD (coronary artery disease) Status: Acute (4) Hypothyroidism Assessment & Plan: Patient with the severe hypothyroidism. Currently receiving intravenous thyroid supplementation. Will continue to monitor, and a endocrine followup Status: Acute
--- NOTE | 2017-07-03 17:36 | CP.PCM.PN ---
Subjective - Date & Time of Evaluation Date of Evaluation: 07/02/17 Time of Evaluation: 17:36 - Subjective Subjective: no new symptoms. Eating better. Appetite is good. Objective - Vital Signs/Intake and Output Vital Signs (last 24 hours): Temp Pulse Resp BP Pulse Ox 97.9 F 94 H 20 115/68 97 07/03/17 16:00 07/03/17 16:26 07/03/17 16:00 07/03/17 16:26 07/03/17 16:26 Intake and Output: 07/03/17 07/03/17 06:59 18:59 Intake Total 420 350 Output Total 300 Balance 120 350 On examination: HEENT PERRLA, neck supple No thyromegaly was noted and no cervical adenopathy noted Chest bilateral good air entry, no wheezing or rales noted CVS regular heart sound, no murmur Abdomen soft and no organomegaly Extremities no pedal edema, no leg swelling, pedal pulses are good. 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 no functional neurological deficit - Medications Medications: Current Medications Aspirin (Ecotrin) 81 mg PO DAILY [facility] Last Admin: 07/03/17 10:05 Dose: 81 mg Atenolol (Tenormin) 50 mg PO DAILY [facility] Last Admin: 07/03/17 10:05 Dose: 50 mg Glipizide (Glucotrol) 5 mg PO ACBD [facility] Last Admin: 07/03/17 08:04 Dose: 5 mg Heparin Sodium (Porcine) (Heparin) 5,000 units SC Q8 [facility] Last Admin: 07/03/17 13:52 Dose: 5,000 units Levothyroxine Sodium 100 mcg/ (Sodium Chloride) 10 mls @ 0 mls/hr IVP Q24H [facility] PRN Reason: UD Last Admin: 07/03/17 05:40 Dose: 100 mls/hr Levothyroxine Sodium (Synthroid) 125 mcg PO ACB [facility] Last Admin: 07/03/17 06:30 Dose: 125 mcg Lidocaine (Lidoderm) 1 ea TD DAILY [facility] Last Admin: 07/03/17 10:04 Dose: 1 ea Rosuvastatin Calcium (Crestor) 5 mg PO HS [facility] Last Admin: 07/02/17 22:40 Dose: 5 mg - Labs Labs: 07/02/17 08:05 07/03/17 07:23 Assessment and Plan (1) CHF (congestive heart failure) Status: Acute (2) Atrial fibrillation Status: Acute (3) CAD (coronary artery disease) Status: Acute (4) Hypothyroidism Assessment & Plan: severe hypothyroidism on medication Status: Acute
--- NOTE | 2017-07-03 17:36 | CP.PCM.DIS ---
Provider - Provider Date of Admission: 07/02/17 15:51 Attending physician: Adina Burroughs MD Time Spent in preparation of Discharge (in minutes): 45 Diagnosis - Discharge Diagnosis (1) CHF (congestive heart failure) Status: Acute (2) Atrial fibrillation Status: Acute (3) CAD (coronary artery disease) Status: Acute (4) Hypothyroidism Status: Acute Hospital Course - Lab Results Lab Results: Most Recent Lab Values WBC 6.2 K/uL (4.8-10.8) 07/02/17 08:05 RBC 3.23 Mil/uL (3.80-5.20) L 07/02/17 08:05 Hgb 9.4 g/dL (11.0-16.0) L 07/02/17 08:05 Hct 28.3 % (34.0-47.0) L 07/02/17 08:05 MCV 87.4 fL (81.0-99.0) 07/02/17 08:05 MCH 29.1 pg (27.0-31.0) 07/02/17 08:05 MCHC 33.3 g/dL (33.0-37.0) 07/02/17 08:05 RDW 16.1 % (11.5-14.5) H 07/02/17 08:05 Plt Count 223 K/uL (130-400) 07/02/17 08:05 MPV 8.5 fL (7.2-11.7) 07/02/17 08:05 Neut % (Auto) 53.9 % (50.0-75.0) 07/02/17 08:05 Lymph % (Auto) 34.0 % (20.0-40.0) 07/02/17 08:05 Menard % (Auto) 8.3 % (0.0-10.0) 07/02/17 08:05 Eos % (Auto) 3.0 % (0.0-4.0) 07/02/17 08:05 Baso % (Auto) 0.8 % (0.0-2.0) 07/02/17 08:05 Neut # 3.4 K/uL (1.8-7.0) 07/02/17 08:05 Lymph # 2.1 K/uL (1.0-4.3) 07/02/17 08:05 Menard # 0.5 K/uL (0.0-0.8) 07/02/17 08:05 Eos # 0.2 K/uL (0.0-0.7) 07/02/17 08:05 Baso # 0.1 K/uL (0.0-0.2) 07/02/17 08:05 Sodium 140 mmol/L (132-148) 07/03/17 07:23 Potassium 4.9 mmol/L (3.6-5.2) 07/03/17 07:23 Chloride 108 mmol/L (98-107) H 07/03/17 07:23 Carbon Dioxide 26 mmol/L (22-30) 07/03/17 07:23 Anion Gap 11 (10-20) 07/03/17 07:23 BUN 33 mg/dL (7-17) H 07/03/17 07:23 Creatinine 1.8 mg/dL (0.7-1.2) H 07/03/17 07:23 Est GFR ( Amer) 32 07/03/17 07:23 Est GFR (Non-Af Amer) 27 07/03/17 07:23 POC Glucose (mg/dL) 140 mg/dL (65-110) H 07/03/17 16:16 Random Glucose 94 mg/dL (65-105) 07/03/17 07:23 Hemoglobin A1c 8.2 % (4.2-6.5) H 06/30/17 07:35 Calcium 8.7 mg/dl (8.6-10.4) 07/03/17 07:23 Total Bilirubin 0.4 mg/dL (0.2-1.3) 07/03/17 07:23 AST 17 U/L (14-36) 07/03/17 07:23 ALT 21 U/L (9-52) 07/03/17 07:23 Alkaline Phosphatase 64 U/L (38-126) 07/03/17 07:23 Total Creatine Kinase < 20 U/L (30-135) L 06/30/17 07:35 Troponin I < 0.0120 ng/mL (0.00-0.120) 06/29/17 08:11 Total Protein 8.6 g/dL (6.3-8.3) H 07/03/17 07:23 Albumin 3.8 g/dL (3.5-5.0) 07/03/17 07:23 Globulin 4.8 gm/dL (2.2-3.9) H 07/03/17 07:23 Albumin/Globulin Ratio 0.8 (1.0-2.1) L 07/03/17 07:23 25-OH Vitamin D Total < 12.8 NG/ML (30.0-100.0) L 06/30/17 07:35 Free T4 0.91 ng/dL (0.78-2.19) 07/03/17 07:23 Thyroxine (T4) 7.82 ug/dL (5.5-11.0) 07/03/17 07:23 TSH 3rd Generation 126.00 mIU/L (0.46-4.68) H 07/03/17 07:23 Cortisol AM Sample 8.0 ug/dL (4.46-22.7) 06/30/17 07:35 Urine Color Yellow (YELLOW) 06/29/17 08:11 Urine Clarity Hazy (Clear) 06/29/17 08:11 Urine pH 7.0 (5.0-8.0) 06/29/17 08:11 Ur Specific [place] 1.012 (1.003-1.030) 06/29/17 08:11 Urine Protein Negative mg/dL (NEGATIVE) 06/29/17 08:11 Urine Glucose (UA) Normal mg/dL (Normal) 06/29/17 08:11 Urine Ketones Negative mg/dL (NEGATIVE) 06/29/17 08:11 Urine Blood Negative (NEGATIVE) 06/29/17 08:11 Urine Nitrate Negative (NEGATIVE) 06/29/17 08:11 Urine Bilirubin Negative (NEGATIVE) 06/29/17 08:11 Urine Urobilinogen Normal mg/dL (0.2-1.0) 06/29/17 08:11 Ur Leukocyte Esterase 1+ Anderson/uL (Negative) H 06/29/17 08:11 Urine WBC (Auto) 8 /hpf (0-5) H 06/29/17 08:11 Urine RBC (Auto) 1 /hpf (0-3) 06/29/17 08:11 Ur Squamous Epith Cells 2 /hpf (0-5) 06/29/17 08:11 Urine Bacteria Rare (<OCC) 06/29/17 08:11 Hyaline Casts 0-2 /lpf (0-2) 06/29/17 08:11 Thyroperoxidase Ab 718 IU/mL (<9) H 06/30/17 07:35 Thyroglobulin Antibody >1000 IU/mL (< OR = 1) H 06/30/17 07:35 - Hospital Course Hospital Course: chief complaint: Abnormal TSH. History presentOf present illness: 86-year-old female, with history of diabetes, hypertension, congestive heart failure, chronic renal failure, history of intermittent atrial fib, in the past , nonobstructive coronary disease, Came to the office with a increasing swelling on the neck, facial swelling, and not feeling well. At that time. Basic blood test was done, and there was increasing elevated TSH level. TSH level was around 200. I immediately advised the patient to go to the emergency room. Because of the complications related to heart condition, hypothyroidism is so severe, you and the clinically patient is okay I advised the patient to go to the emergency room for further management. The patient is currently feeling okay, no chest pain, neck swelling noted and facial swelling present. Patient is eating okay. Patient is making urine. No leg swelling noted. On examination: HEENT PERRLA, neck supple No thyromegaly was noted and no cervical adenopathy noted Chest bilateral good air entry, no wheezing or rales noted CVS regular heart sound, no murmur Abdomen soft and no organomegaly Extremities no pedal edema, no leg swelling, pedal pulses are good. 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 Assessment and recommendation: Patient hospitalized with acute severeHistory of diabetes, hypertension Patient hospitalized with acute severe hypothyroidism. History of hypertension, diabetes, congestive heart failure, chronic renal failure, history of intermittent A. fib. Because of the high risk, I admitted the patient, and is closely monitored. Seen by endocrine. Initially started on intravenous levothyroxine. Patient responded well. She's currently stable, she will be discharged home with the levothyroxine 125 micrograms daily. Glipizide XL ordered. Continue her medications and will follow the patient Discharge Plan - Discharge Medications Prescriptions: GlipiZIDE [Glucotrol] 5 mg PO ACBD #30 tab Levothyroxine [Synthroid] 125 mcg PO ACB #30 tab - Follow Up Plan Condition: GOOD Disposition: HOME/ ROUTINE Instructions: Glipizide (By mouth), Levothyroxine (By mouth), Heart Failure (DC ), Hypothyroidism (DC) Additional Instructions: FOLLOW UP WITH DR. BURROUGHS IN THE OFFICE WITHIN 1 WEEK---CALL FOR APPT TIME. FOLLOW UP WITH DR. SILVEIRA (THE DOCTOR FOR YOUR DOCTOR) IN HER OFFICE NEXT WEEK--- CALL THE OFFICE TOMORROW TO MAKE YOUR APPT. CONTINUE TAKING YOUR HOME MEDICATIONS USUAL. NEW PRESCRIPTION SENT TO YOUR PHARMACY (PLEASE PICK IT UP TONIGHT): LEVOTHYROXINE 125 MCG (TAKE 1 TABLET) BY MOUTH EVERY MORNING BEFORE BREAKFAST ( MAKE SURE YOU TAKE ON AN EMPTY STOMACH). IF YOU HAVE ANY FURTHER QUESTIONS OR CONCERNS, CONTACT DR. BURROUGHS'S OR DR. SILVEIRA'S OFFICE. Referrals: Itzel Silveira MD [Medical Doctor] - Adina Burroughs MD [Staff Provider] -
== END 2017-07-03 19:07 | disposition home or self-care (01) | DRG 644 ==
LOC: C.ER 07:05 → C.9E 09:40 → C.3T 10:14 → OBSVTOIN 07-02 15:51
PROVIDERS: ADMIT Internal Medicine; ATTEND Internal Medicine
DX: E06.3 Autoimmune thyroiditis (principal); I13.0 Hypertensive heart and chronic kidney disease with heart failure and stage 1 through stage 4 chronic kidney disease, or unspecified chronic kidney disease; E11.22 Type 2 diabetes mellitus with diabetic chronic kidney disease; I48.91 Unspecified atrial fibrillation; I50.9 Heart failure, unspecified; F03.90 Unspecified dementia, unspecified severity, without behavioral disturbance, psychotic disturbance, mood disturbance, and anxiety; E78.00 Pure hypercholesterolemia, unspecified; E78.5 Hyperlipidemia, unspecified; I25.10 Atherosclerotic heart disease of native coronary artery without angina pectoris; I25.2 Old myocardial infarction; N18.9 Chronic kidney disease, unspecified